=== PATIENT | female | born 1950 | race African-American/Black ===

== ENCOUNTER 2024-06-08 10:19 | Emergency (ER) | payer MEDICARE, MEDICAID ==
[~2024-06-08] VITALS: Ht 157.5 cm; Wt 65.0 kg
[2024-06-08 12:14] VITALS: TEMP 98.5
[2024-06-08 13:29] VITALS: BP 182/101; PULSE 73; RESP 16; O2SAT 99
== END 2024-06-08 13:53 | disposition home or self-care (01) ==
LOC: ER 10:20
DX: S50.01XA Contusion of right elbow, initial encounter (principal); Z88.0 Allergy status to penicillin; Z88.5 Allergy status to narcotic agent; W01.0XXA Fall on same level from slipping, tripping and stumbling without subsequent striking against object, initial encounter; Y93.89 Activity, other specified; Y92.89 Other specified places as the place of occurrence of the external cause; Y99.8 Other external cause status
CPT/HCPCS: 73030; 73080; 73090; 73130; 99284; A4565